=== PATIENT | female | born 1925 | race Caucasian/White ===

== ENCOUNTER 2017-05-10 07:01 | Inpatient (IN) | payer OTHER ==
[~2017-05-10] VITALS: Ht 160 cm; Wt 60.5 kg
[~2017-05-10 07:01] MED LIST: ASPIR-LOW81 MG PO; CYANOCOBAL1000 MCG/2 IM; DIOVAN320 MG PO; ELIQUIS5 MG PO; LEVOTHYROXINE125 MCG PO; NORVASC2.5 MG PO; PANTOPRAZOLE SO40 MG PO; PRESERVISION A1 EAC2 PO; REFRESH TEARS15 ML BOTH EYES
[2017-05-10 07:27] LABS: BASOPHIL COUNT 0.1 K/uL (0-0.1); EOSINOPHIL (%) 0.8 % (0-5); EOSINOPHIL COUNT 0.1 K/uL (0-0.3); HEMATOCRIT 38.9 % (36.0-46.0); IMMATURE GRANULOCYTE (%) 0.4 % (0.0-0.7); INSTRUMENT ABS NEUTROPHIL CT 6.4 K/uL; LYMPHOCYTE COUNT 1.3 K/uL (1.0-2.8); MCH 30.3 PG (29.0-34.0); MCHC 33.4 G/DL (30.0-36.0); MCV 90.7 FL (83-99); MEAN PLAT.VOLUME 9.8 uM^3 (9.5-12.4); MONOCYTE COUNT 0.5 K/uL (0-0.8); NEUTROPHIL (%) 76.1 % (45-76); NEUTROPHIL COUNT 6.4 K/uL (1.8-6.4); PLATELET COUNT 239 K/uL (156-360); RBC DIS.WIDTH-CV 13.8 % (11.8-14.6); RED BLOOD COUNT 4.29 M/uL (3.80-5.20); WHITE BLOOD COUNT 8.4 K/uL (4.1-10.2)
[2017-05-10 07:37] LABS: CHLORIDE 94 mEq/L (99-109); POTASSIUM 4.5 mEq/L (3.7-5.4); SODIUM 127 mEq/L (136-147)
[2017-05-10 07:38] LABS: GLUCOSE 125 mg/dL (70-99); PTT 32.4 (25-32)
[2017-05-10 07:40] LABS: ANION GAP 8 MEQ/L (2-14)
[2017-05-10 07:42] LABS: GFR ESTIMATE (CALCULATED) > 59 mL/min/
[2017-05-10 07:43] LABS: UREA NITROGEN (BUN) 14 mg/dL (9-23)
[2017-05-10 07:50] LABS: TROP-I INTERPRETATION POSITIVE; TROPONIN-I 16.23 ng/mL (0.0-0.30)
[2017-05-10] MEDS ORDERED: PANTOPRAZOLE SO40 MG PO (08:47)
[2017-05-10 20:22] LABS: TROP-I INTERPRETATION POSITIVE
[2017-05-10 22:45] VITALS: BP 154/78
[2017-05-10 23:41] VITALS: BP 156/80
[2017-05-11] VITALS (7 sets, daily range): BP systolic 102–176; BP diastolic 62–95
[2017-05-11 05:47] LABS: TROP-I INTERPRETATION POSITIVE
[2017-05-11 05:55] LABS: BASOPHIL COUNT 0.1 K/uL (0-0.1); EOSINOPHIL (%) 0.8 % (0-5); EOSINOPHIL COUNT 0.1 K/uL (0-0.3); HEMATOCRIT 37.9 % (36.0-46.0); IMMATURE GRANULOCYTE (%) 0.3 % (0.0-0.7); INSTRUMENT ABS NEUTROPHIL CT 6.8 K/uL; LYMPHOCYTE COUNT 1.3 K/uL (1.0-2.8); MCV 91.1 FL (83-99); MEAN PLAT.VOLUME 10.4 uM^3 (9.5-12.4); MONOCYTE (%) 6.3 % (3-12); MONOCYTE COUNT 0.6 K/uL (0-0.8); NEUTROPHIL (%) 77.2 % (45-76); NEUTROPHIL COUNT 6.8 K/uL (1.8-6.4); PLATELET COUNT 240 K/uL (156-360); RBC DIS.WIDTH-CV 14.1 % (11.8-14.6); RED BLOOD COUNT 4.16 M/uL (3.80-5.20); WHITE BLOOD COUNT 8.8 K/uL (4.1-10.2)
[2017-05-11 06:08] LABS: TROPONIN-I 94.26 ng/mL (0.0-0.30)
[2017-05-11 06:19] LABS: ANION GAP 12 MEQ/L (2-14); CHLORIDE 92 MEQ/L (99-109); GFR ESTIMATE (CALCULATED) 55 mL/min/; GLUCOSE 106 mg/dL (70-99); HDL CHOLESTEROL 47 MG/DL (Desirable>=50); LDL CHOLESTEROL 73 mg/dL (Desirable<100); NON-HDL CHOLESTEROL 91 mg/dL (Desirable<160); POTASSIUM 4.5 MEQ/L (3.7-5.4); SAMPLE HEMOLYSIS CHECK 0; SAMPLE ICTERIC CHECK 1; SAMPLE LIPEMIA CHECK 0; SODIUM 127 MEQ/L (136-147); TOTAL CHOLESTEROL 138 mg/dL (Desirable<200); TRIGLYCERIDES 91 MG/DL (Normal: <150); UREA NITROGEN (BUN) 16 mg/dL (9-23)
[2017-05-12 04:50] VITALS: BP 136/65
[2017-05-12 05:47] LABS: HEMATOCRIT 35.8 % (36.0-46.0); MCH 30.2 PG (29.0-34.0); MCHC 34.1 G/DL (30.0-36.0); MCV 88.6 FL (83-99); MEAN PLAT.VOLUME 9.8 uM^3 (9.5-12.4); PLATELET COUNT 239 K/uL (156-360); RBC DIS.WIDTH-CV 13.6 % (11.8-14.6); RBC DIS.WIDTH-SD 44.7 % (39-53); RED BLOOD COUNT 4.04 M/uL (3.80-5.20)
[2017-05-12 06:17] LABS: ANION GAP 9 MEQ/L (2-14); CHLORIDE 92 MEQ/L (99-109); GFR ESTIMATE (CALCULATED) 55 mL/min/; GLUCOSE 115 mg/dL (70-99); POTASSIUM 4.2 MEQ/L (3.7-5.4); SAMPLE HEMOLYSIS CHECK 0; SAMPLE ICTERIC CHECK 1; SAMPLE LIPEMIA CHECK 0; SODIUM 126 MEQ/L (136-147); UREA NITROGEN (BUN) 18 mg/dL (9-23)
[2017-05-12 08:02] VITALS: BP 148/65
[2017-05-12 10:04] LABS: COLOR BLOODY ((YELLOW)); LEUKOCYTES MODERATE; NITRITE NEGATIVE; SPECIFIC GRAVITY 1.007 (1.000-1.030)
[2017-05-12 10:05] LABS: ADD MIUA? YES; BILIRUBIN NEGATIVE; BLOOD LARGE; GLUCOSE (STRIP) NEGATIVE; KETONES NEGATIVE; PROTEIN (STRIP) 100; UROBILINOGEN 0.2 MG/DL (0.2-1.0)
[2017-05-12 10:08] LABS: RED BLOOD CELLS TNTC /HPF (0-5)
[2017-05-12 11:19] VITALS: BP 125/62
[2017-05-12 15:22] VITALS: BP 145/71
[2017-05-12 19:31] VITALS: BP 122/60
[2017-05-12 23:24] VITALS: BP 139/63
[2017-05-13 04:55] VITALS: BP 125/60
[2017-05-13 05:47] LABS: HEMATOCRIT 32.8 % (36.0-46.0); MCH 30.7 PG (29.0-34.0); MCHC 34.5 G/DL (30.0-36.0); MCV 89.1 FL (83-99); MEAN PLAT.VOLUME 9.9 uM^3 (9.5-12.4); PLATELET COUNT 235 K/uL (156-360); RBC DIS.WIDTH-CV 13.7 % (11.8-14.6); RBC DIS.WIDTH-SD 44.7 % (39-53); RED BLOOD COUNT 3.68 M/uL (3.80-5.20); WHITE BLOOD COUNT 9.5 K/uL (4.1-10.2)
[2017-05-13 06:12] LABS: ANION GAP 11 MEQ/L (2-14); CHLORIDE 93 MEQ/L (99-109); GFR ESTIMATE (CALCULATED) > 59 mL/min/; GLUCOSE 101 mg/dL (70-99); POTASSIUM 4.3 MEQ/L (3.7-5.4); SAMPLE HEMOLYSIS CHECK 1; SAMPLE ICTERIC CHECK 1; SAMPLE LIPEMIA CHECK 0; SODIUM 126 MEQ/L (136-147); UREA NITROGEN (BUN) 17 mg/dL (9-23)
[2017-05-13 07:58] VITALS: BP 131/62
[2017-05-13 11:11] VITALS: BP 113/55
[2017-05-13 15:49] VITALS: BP 140/77
[2017-05-13 19:00] VITALS: BP 109/59
[2017-05-14 01:15] VITALS: BP 126/66
[2017-05-14 01:55] VITALS: BP 109/59
[2017-05-14 03:57] VITALS: BP 124/58
[2017-05-14 06:05] LABS: HEMATOCRIT 32.2 % (36.0-46.0); MCH 31.1 PG (29.0-34.0); MCHC 35.1 G/DL (30.0-36.0); MCV 88.7 FL (83-99); MEAN PLAT.VOLUME 9.9 uM^3 (9.5-12.4); PLATELET COUNT 259 K/uL (156-360); RBC DIS.WIDTH-CV 13.7 % (11.8-14.6); RBC DIS.WIDTH-SD 44.5 % (39-53); RED BLOOD COUNT 3.63 M/uL (3.80-5.20)
[2017-05-14 06:25] LABS: ANION GAP 11 MEQ/L (2-14); CHLORIDE 94 MEQ/L (99-109); GFR ESTIMATE (CALCULATED) > 59 mL/min/; GLUCOSE 104 mg/dL (70-99); POTASSIUM 4.3 MEQ/L (3.7-5.4); SAMPLE HEMOLYSIS CHECK 0; SAMPLE ICTERIC CHECK 1; SAMPLE LIPEMIA CHECK 0; SODIUM 126 MEQ/L (136-147); UREA NITROGEN (BUN) 18 mg/dL (9-23)
[2017-05-14 08:20] VITALS: BP 140/63
[2017-05-14 12:33] VITALS: BP 111/54
[2017-05-14] MEDS ORDERED: CEFDINIR300 MG PO (14:32)
[2017-05-14] MEDS ORDERED: CLOPIDOGREL75 MG PO (14:33)
[2017-05-14] MEDS ORDERED: ATORVASTATIN CA40 MG PO (14:33)
[2017-05-14] MEDS ORDERED: NITROSTAT0.4 MG SL (14:33)
[2017-05-14] MEDS ORDERED: LOPRESSOR25 MG PO (14:42)
[2017-05-14] MEDS ORDERED: LASIX20 MG PO (14:43)
[2017-05-14] MEDS ORDERED: ASPIR-LOW81 MG PO (14:43)
== END 2017-05-14 20:00 | DRG 246 ==
LOC: EME 07:01 → 4EAST 09:17 → EDOF 09:17 → 4EAST 14:45 → EDOF 17:00 → 4EAST 22:42
PROVIDERS: Emergency Medicine; Hospitalist; Internal Medicine; Internal Medicine Cardiovascular Disease
DX: I21.4 Non-ST elevation (NSTEMI) myocardial infarction (principal); I50.21 Acute systolic (congestive) heart failure; G62.9 Polyneuropathy, unspecified; I11.0 Hypertensive heart disease with heart failure; R31.0 Gross hematuria; E87.1 Hypo-osmolality and hyponatremia; I48.2 Chronic atrial fibrillation; N39.0 Urinary tract infection, site not specified; E03.9 Hypothyroidism, unspecified; K21.9 Gastro-esophageal reflux disease without esophagitis; I44.7 Left bundle-branch block, unspecified; D50.9 Iron deficiency anemia, unspecified; F32.9 Major depressive disorder, single episode, unspecified; E53.8 Deficiency of other specified B group vitamins; I25.10 Atherosclerotic heart disease of native coronary artery without angina pectoris; M19.90 Unspecified osteoarthritis, unspecified site; Z95.2 Presence of prosthetic heart valve; I25.2 Old myocardial infarction; Z87.891 Personal history of nicotine dependence; Z95.5 Presence of coronary angioplasty implant and graft; Z87.19 Personal history of other diseases of the digestive system
CPT/HCPCS: 71010; 71020; 76770; 80048; 80061; 81003; 83880; 84484; 85025; 85027; 85347; 85610; 85730; 87077; 87086; 87186; 93005; 93306; 94640; 94640 76; 97530 GP; 99202; 99281; 99285; C1725; C1769; C1874; C1887; C1894; J0583; J0696; J1200; J1644; J1940; J2250; J3010; J3246; J7050; J7644

== ENCOUNTER 2017-06-11 03:09 | Observation (INO) | payer OTHER ==
[~2017-06-11] VITALS: Ht 160 cm; Wt 70.0 kg
[~2017-06-11 03:09] MED LIST changes: +ATORVASTATIN CA40 MG PO; +CEFDINIR300 MG PO; +CLOPIDOGREL75 MG PO; +LASIX20 MG PO; +LOPRESSOR25 MG PO; +NITROSTAT0.4 MG SL
[2017-06-11 03:49] LABS: BASOPHIL COUNT 0.1 K/uL (0-0.1); EOSINOPHIL (%) 2.6 % (0-5); EOSINOPHIL COUNT 0.1 K/uL (0-0.3); HEMATOCRIT 33.6 % (36.0-46.0); IMMATURE GRANULOCYTE (%) 0.4 % (0.0-0.7); INSTRUMENT ABS NEUTROPHIL CT 3.4 K/uL; LYMPHOCYTE COUNT 1.3 K/uL (1.0-2.8); MCH 29.9 PG (29.0-34.0); MCHC 32.7 G/DL (30.0-36.0); MCV 91.3 FL (83-99); MEAN PLAT.VOLUME 10.6 uM^3 (9.5-12.4); MONOCYTE (%) 8.7 % (3-12); MONOCYTE COUNT 0.5 K/uL (0-0.8); NEUTROPHIL (%) 63.2 % (45-76); NEUTROPHIL COUNT 3.4 K/uL (1.8-6.4); PLATELET COUNT 189 K/uL (156-360); RBC DIS.WIDTH-CV 15.4 % (11.8-14.6); RBC DIS.WIDTH-SD 51.8 % (39-53); RED BLOOD COUNT 3.68 M/uL (3.80-5.20); WHITE BLOOD COUNT 5.4 K/uL (4.1-10.2)
[2017-06-11 04:01] LABS: CHLORIDE 100 mEq/L (99-109); POTASSIUM 3.8 mEq/L (3.7-5.4); SODIUM 133 mEq/L (136-147)
[2017-06-11 04:03] LABS: GLUCOSE 96 mg/dL (70-99)
[2017-06-11 04:04] LABS: ANION GAP 11 MEQ/L (2-14)
[2017-06-11 04:05] LABS: TOTAL BILIRUBIN 5.7 mg/dL (0.0-1.0)
[2017-06-11 04:07] LABS: ALKALINE PHOSPHATASE 144 IU/L (3-129); GFR ESTIMATE (CALCULATED) 41 mL/min/
[2017-06-11 04:08] LABS: UREA NITROGEN (BUN) 12 mg/dL (9-23)
[2017-06-11 04:09] LABS: DIRECT BILIRUBIN 4.8 mg/dL (0.0-0.3)
[2017-06-11 04:10] LABS: CREATINE KINASE 140 IU/L (1-294); LIPASE 29 U/L (1.0-51.0); TOTAL CK 140 IU/L (1-294)
[2017-06-11 04:12] LABS: TROP-I INTERPRETATION NEGATIVE; TROPONIN-I 0.05 ng/mL (0.0-0.30)
[2017-06-11 04:17] LABS: CK-MB 5.5 ng/mL (0.0-4.9)
[2017-06-11 05:13] LABS: ADD MIUA? YES; BILIRUBIN NEGATIVE; BLOOD SMALL; COLOR YELLOW ((YELLOW)); GLUCOSE (STRIP) NEGATIVE; KETONES NEGATIVE; LEUKOCYTES MODERATE; NITRITE NEGATIVE; PROTEIN (STRIP) 100; SPECIFIC GRAVITY 1.004 (1.000-1.030); UROBILINOGEN 0.2 MG/DL (0.2-1.0)
[2017-06-11 05:16] LABS: BACTERIA NONE SEEN /HPF; EPITHELIAL CELLS RARE /HPF; MUCUS NONE SEEN /LPF; RED BLOOD CELLS 0-5 /HPF (0-5); UCUL ADDED? YES
[2017-06-11] MEDS ORDERED: ISOSORBIDE MONO10 M1 PO (08:50)
[2017-06-11] MEDS ORDERED: SYSTANE BALANCE10 ML BOTH EYES (08:54)
[2017-06-11 09:24] VITALS: BP 121/56
[2017-06-11 13:26] VITALS: BP 137/78
[2017-06-11 14:03] LABS: ALKALINE PHOSPHATASE 137 IU/L (3-129); DIRECT BILIRUBIN 3.9 mg/dL (0.0-0.3); TOTAL BILIRUBIN 6.7 MG/DL (0.0-1.0)
[2017-06-11 15:00] VITALS: BP 135/74
== END 2017-06-11 17:23 ==
LOC: EME → EDBD 03:09 → EME 03:09 → EDOF 07:06 → ENRESERV 07:08 → 5WEST 08:59
PROVIDERS: Emergency Medicine; Family Medicine
DX: R10.84 Generalized abdominal pain (principal); R79.89 Other specified abnormal findings of blood chemistry; I21.4 Non-ST elevation (NSTEMI) myocardial infarction; I48.2 Chronic atrial fibrillation; Z95.2 Presence of prosthetic heart valve; I10 Essential (primary) hypertension; E03.9 Hypothyroidism, unspecified; G62.9 Polyneuropathy, unspecified; I44.7 Left bundle-branch block, unspecified; Z87.19 Personal history of other diseases of the digestive system; Z88.8 Allergy status to other drugs, medicaments and biological substances; Z79.02 Long term (current) use of antithrombotics/antiplatelets; Z79.82 Long term (current) use of aspirin
CPT/HCPCS: 71020; 74177; 76705; 80048; 80076; 81003; 82550; 82553; 83690; 83880; 84484; 85025; 87086 GA; 93005; 99281; 99285; G0378; J1650

== ENCOUNTER 2017-06-20 05:08 | Inpatient (IN) | payer OTHER ==
[~2017-06-20] VITALS: Ht 160 cm; Wt 62.1 kg
[~2017-06-20 05:08] MED LIST changes: +ISOSORBIDE MONO10 M1 PO; +SYSTANE BALANCE10 ML BOTH EYES
[2017-06-20 05:35] LABS: HEMATOCRIT 34.2 % (36.0-46.0); MCH 29.6 PG (29.0-34.0); MCHC 33.6 G/DL (30.0-36.0); MCV 87.9 FL (83-99); MEAN PLAT.VOLUME 10.4 uM^3 (9.5-12.4); PLATELET COUNT 208 K/uL (156-360); RBC DIS.WIDTH-SD 48.2 % (39-53); RED BLOOD COUNT 3.89 M/uL (3.80-5.20); WHITE BLOOD COUNT 6.7 K/uL (4.1-10.2)
[2017-06-20 05:48] LABS: CHLORIDE 93 mEq/L (99-109); POTASSIUM 4.3 mEq/L (3.7-5.4); SODIUM 125 mEq/L (136-147)
[2017-06-20 05:50] LABS: GLUCOSE 102 mg/dL (70-99)
[2017-06-20 05:52] LABS: ANION GAP 9 MEQ/L (2-14)
[2017-06-20 05:54] LABS: ALKALINE PHOSPHATASE 151 IU/L (3-129); GFR ESTIMATE (CALCULATED) 55 mL/min/
[2017-06-20 05:55] LABS: UREA NITROGEN (BUN) 13 mg/dL (9-23)
[2017-06-20 05:57] LABS: LIPASE 32 U/L (1.0-51.0)
[2017-06-20 06:04] LABS: TROP-I INTERPRETATION NEGATIVE; TROPONIN-I 0.05 ng/mL (0.0-0.30)
[2017-06-20 06:30] LABS: DIRECT BILIRUBIN 5.7 mg/dL (0.0-0.3)
[2017-06-20 09:02] LABS: ADD MIUA? YES; BILIRUBIN NEGATIVE; BLOOD NEGATIVE; COLOR YELLOW ((YELLOW)); GLUCOSE (STRIP) NEGATIVE; KETONES NEGATIVE; LEUKOCYTES SMALL; NITRITE NEGATIVE; PROTEIN (STRIP) 100
[2017-06-20 09:16] LABS: BACTERIA NONE SEEN /HPF; CALCIUM OXALATE CRYSTALS 1+ /HPF; EPITHELIAL CELLS RARE /HPF; MUCUS NONE SEEN /LPF; RED BLOOD CELLS 0-5 /HPF (0-5); UCUL ADDED? YES
[2017-06-20 10:28] VITALS: BP 151/74
[2017-06-20 15:02] LABS: URINE TOTAL PROTEIN 79 MG/DL (0-10)
[2017-06-20 15:26] LABS: UR CREATININE CONCENTRATION 42.2 MG/DL
[2017-06-20 16:03] VITALS: BP 137/79
[2017-06-20 21:04] VITALS: BP 136/75
[2017-06-21] VITALS (7 sets, daily range): BP systolic 111–152; BP diastolic 57–68
[2017-06-21 06:04] LABS: HEMATOCRIT 35.3 % (36.0-46.0); MCH 30.1 PG (29.0-34.0); MCV 88.5 FL (83-99); MEAN PLAT.VOLUME 10.9 uM^3 (9.5-12.4); PLATELET COUNT 220 K/uL (156-360); RBC DIS.WIDTH-CV 15.2 % (11.8-14.6); RBC DIS.WIDTH-SD 49.1 % (39-53); RED BLOOD COUNT 3.99 M/uL (3.80-5.20); WHITE BLOOD COUNT 4.1 K/uL (4.1-10.2)
[2017-06-21 07:16] LABS: ALKALINE PHOSPHATASE 129 IU/L (3-129); ANION GAP 9 MEQ/L (2-14); CHLORIDE 94 MEQ/L (99-109); DIRECT BILIRUBIN 5.3 mg/dL (0.0-0.3); GFR ESTIMATE (CALCULATED) 50 mL/min/; GLOBULINS 2.9 G/DL (2.3-3.5); GLUCOSE 76 mg/dL (70-99); POTASSIUM 3.9 MEQ/L (3.7-5.4); SAMPLE HEMOLYSIS CHECK 0; SAMPLE ICTERIC CHECK 2; SAMPLE LIPEMIA CHECK 0; SODIUM 131 MEQ/L (136-147); TOTAL BILIRUBIN 8.1 MG/DL (0.0-1.0); UREA NITROGEN (BUN) 12 mg/dL (9-23)
[2017-06-21 13:25] LABS: ALPHA-1 GLOBULIN 0.22 G/DL (0.15-0.40); ALPHA-2 GLOBULIN 0.77 G/DL (0.45-0.85); ALPHA-2 PERCENT 12.1 % (6.2-11.6)
[2017-06-22 03:12] VITALS: BP 161/77
[2017-06-22 06:04] LABS: HEMATOCRIT 35.1 % (36.0-46.0); MCH 28.4 PG (29.0-34.0); MCHC 32.2 G/DL (30.0-36.0); MCV 88.2 FL (83-99); MEAN PLAT.VOLUME 10.5 uM^3 (9.5-12.4); PLATELET COUNT 215 K/uL (156-360); RBC DIS.WIDTH-CV 14.9 % (11.8-14.6); RBC DIS.WIDTH-SD 48.2 % (39-53); RED BLOOD COUNT 3.98 M/uL (3.80-5.20); WHITE BLOOD COUNT 4.6 K/uL (4.1-10.2)
[2017-06-22 06:39] LABS: ANION GAP 11 MEQ/L (2-14); CHLORIDE 96 MEQ/L (99-109); GFR ESTIMATE (CALCULATED) 38 mL/min/; GLUCOSE 88 mg/dL (70-99); POTASSIUM 3.7 MEQ/L (3.7-5.4); SAMPLE HEMOLYSIS CHECK 0; SAMPLE ICTERIC CHECK 2; SAMPLE LIPEMIA CHECK 0; SODIUM 133 MEQ/L (136-147); UREA NITROGEN (BUN) 13 mg/dL (9-23)
[2017-06-22 07:52] LABS: ALBUMIN 3.53 G/DL (3.6-4.9); ALBUMIN PERCENT 55.2 % (49.3-67.1)
[2017-06-22 07:53] LABS: ALPHA-1 PERCENT 3.5 % (2.1-5.5); BETA PERCENT 12.2 % (8.9-15.8)
[2017-06-22 08:30] VITALS: BP 130/60
[2017-06-22 10:04] LABS: ALKALINE PHOSPHATASE 136 IU/L (3-129); DIRECT BILIRUBIN 4.7 mg/dL (0.0-0.3); TOTAL BILIRUBIN 7.6 MG/DL (0.0-1.0)
[2017-06-22 11:35] VITALS: BP 102/61
[2017-06-22 15:37] VITALS: BP 110/62
[2017-06-22 20:31] VITALS: BP 132/65
[2017-06-22 23:45] VITALS: BP 150/63
[2017-06-23 03:01] VITALS: BP 144/67
[2017-06-23 07:15] LABS: ANION GAP 9 MEQ/L (2-14); CHLORIDE 93 MEQ/L (99-109); GFR ESTIMATE (CALCULATED) 45 mL/min/; GLUCOSE 94 mg/dL (70-99); SAMPLE HEMOLYSIS CHECK 0; SAMPLE ICTERIC CHECK 2; SAMPLE LIPEMIA CHECK 0; SODIUM 131 MEQ/L (136-147); UREA NITROGEN (BUN) 14 mg/dL (9-23)
[2017-06-23 08:21] VITALS: BP 148/72
[2017-06-23] MEDS ORDERED: FUROSEMIDE20 MG PO (11:08)
[2017-06-23] MEDS ORDERED: SPIRONOLACTONE25 MG PO (11:08)
[2017-06-23] MEDS ORDERED: PANTOPRAZOLE SO40 MG PO (11:09)
[2017-06-23 11:18] VITALS: BP 118/67
== END 2017-06-23 13:24 | DRG 292 ==
LOC: EME → EDBD 05:08 → EME 05:08 → 5WEST 09:48 → EDOF 09:48 → ENRESERV 09:49 → EDOF 09:52 → ENRESERV 09:57 → 5WEST 10:21 → 2EAST 06-21 10:14 → ENRESERV 06-21 10:20 → 2EAST 06-21 16:00
PROVIDERS: Emergency Medicine; Internal Medicine; Internal Medicine Nephrology; Nurse Practitioner Adult Health; Physician Assistant
DX: I11.0 Hypertensive heart disease with heart failure (principal); I50.23 Acute on chronic systolic (congestive) heart failure; N17.9 Acute kidney failure, unspecified; I48.2 Chronic atrial fibrillation; I25.10 Atherosclerotic heart disease of native coronary artery without angina pectoris; I27.2 Other secondary pulmonary hypertension; I25.5 Ischemic cardiomyopathy; K21.9 Gastro-esophageal reflux disease without esophagitis; E87.1 Hypo-osmolality and hyponatremia; R17 Unspecified jaundice; I08.1 Rheumatic disorders of both mitral and tricuspid valves; E03.9 Hypothyroidism, unspecified; K29.70 Gastritis, unspecified, without bleeding; R80.0 Isolated proteinuria; Z66 Do not resuscitate; F32.9 Major depressive disorder, single episode, unspecified; R80.9 Proteinuria, unspecified; T50.2X5A Adverse effect of carbonic-anhydrase inhibitors, benzothiadiazides and other diuretics, initial encounter; Z95.2 Presence of prosthetic heart valve; Q45.3 Other congenital malformations of pancreas and pancreatic duct; Z90.49 Acquired absence of other specified parts of digestive tract; Z68.31 Body mass index [BMI] 31.0-31.9, adult; Z79.82 Long term (current) use of aspirin; Z79.899 Other long term (current) drug therapy; Z86.73 Personal history of transient ischemic attack (TIA), and cerebral infarction without residual deficits; Z87.891 Personal history of nicotine dependence; I25.2 Old myocardial infarction
CPT/HCPCS: 36415; 70450; 71020; 74177; 74181; 80048; 80053; 80076; 81003; 82043; 82105 90; 82248; 82390; 82533 91; 82570; 83516 90; 83690; 83880; 83930; 83935; 84165; 84166; 84300; 84443; 84460; 84484; 85027; 86038; 86235; 86256 90; 86301 90; 87086; 93005; 99281; 99284; G0378; J1650; J1940; J7030

== ENCOUNTER → 2017-08-19 | Outpatient (CLI) | payer OTHER ==
[~2017-08-19] VITALS: Ht 160 cm; Wt 61.2 kg
[~2017-08-19] MED LIST changes: +ALDACTONE25 MG PO; +ASPIR 8181 M1 PO; +FUROSEMIDE20 MG PO; +PLAVIX75 MG PO; +PROTONIX40 MG PO; +SPIRONOLACTONE25 MG PO
== END | disposition home or self-care (01) ==
LOC: AMB 08:30
DX: R17 Unspecified jaundice (principal); Q45.3 Other congenital malformations of pancreas and pancreatic duct; K86.89 Other specified diseases of pancreas; I10 Essential (primary) hypertension; E78.2 Mixed hyperlipidemia; I48.2 Chronic atrial fibrillation; D64.9 Anemia, unspecified; I42.9 Cardiomyopathy, unspecified; Z95.2 Presence of prosthetic heart valve; Z95.5 Presence of coronary angioplasty implant and graft
CPT/HCPCS: 88305; 88307; 88313; 88331; 88342 TC; C1726; J0330; J0744; J1100; J2405